=== PATIENT | male | born 1990 | race Caucasian/White ===

== ENCOUNTER 2021-01-12 13:15 | Emergency (ER) | payer OTHER ==
[~2021-01-12 13:15] MED LIST: BENTYL10 MG PO; CARAFATE1 GM PO; NORCO 5-325 TA1 EACH PO; PROTONIX 40MG T40 MG PO
[2021-01-12] MEDS ORDERED: MOTRIN600 MG PO (14:56)
[2021-01-12] MEDS ORDERED: CYCLOBENZAPRINE10 MG PO (14:56)
== END 2021-01-12 15:34 | disposition home or self-care (01) ==
LOC: FER 13:15
DX: S39.012A Strain of muscle, fascia and tendon of lower back, initial encounter (principal); F17.210 Nicotine dependence, cigarettes, uncomplicated; X58.XXXA Exposure to other specified factors, initial encounter
CPT/HCPCS: 99283; J1885